=== PATIENT | male | born 1990 | race Caucasian/White ===

== ENCOUNTER 2025-10-18 14:06 | Outpatient (REF) | payer MEDICAID, SELFPAY ==
--- NOTE | ~2025-10-18 | US_ITS ---
CLINICAL HISTORY: LUMP TO RIGHT MEDIAL UPPER THIGH Ultrasound soft tissues right leg Comparison: None provided Findings: 1.1 cm subcutaneous nodule with predominant fatty echogenicity. Question lymph node with fatty hilum versus benign lipoma. 0.7 cm heterogeneous subcutaneous fluid collection. 0.3 cm similar heterogeneous subcutaneous fluid collection. These may represent resolving hematomas or seromas. Recommend clinical follow-up to ensure resolution. Impression: Small heterogeneous fluid collections as above Question resolving hematomas, recommend clinical follow-up Fatty replaced lymph node versus lipoma as above This document has been electronically signed by: Jason Redmond MD on 10/18/2025 19:28:53
== END 2025-10-18 14:07 | disposition home or self-care (01) ==
LOC: HO.US 14:06
PROVIDERS: Visit Provider Internal Medicine
DX: R22.41 Localized swelling, mass and lump, right lower limb (principal)
CPT/HCPCS: 76882

== ENCOUNTER → 2025-10-18 15:19 | Outpatient (BNV) | payer MEDICAID, SELFPAY | PROVIDERS: Visit Provider Radiology Diagnostic Radiology | DX: R22.41 Localized swelling, mass and lump, right lower limb (principal) | CPT/HCPCS: 76882 ==

== ENCOUNTER 2025-11-22 18:12 | Emergency (ER) | payer MEDICAID, SELFPAY ==
--- NOTE | 2025-11-22 | ECG_ITS ---
Test Reason : SYNCOPE Blood Pressure : */* mmHG Vent. Rate : 89 BPM Atrial Rate : 89 BPM P-R Int : 138 ms QRS Dur : 88 ms QT Int : 344 ms P-R-T Axes : 65 35 31 degrees QTcB Int : 418 ms Normal sinus rhythm Normal ECG When compared with ECG of 23-Jun-2007 22:01, No significant changes seen Referred By: Generic ED Physician Electronically Signed By: ODILIA WILKERSON MD
--- NOTE | ~2025-11-22 | XR_ITS ---
CLINICAL HISTORY: cough 1 view chest x-ray. Comparison: None Findings: No consolidation or effusion. Cardiac and mediastinal contours appear unremarkable. Bones unremarkable. Impression: 1. No acute pulmonary disease. This document has been electronically signed by: Bruno Pichardo MD on 11/22/2025 19:38:58
--- NOTE | ~2025-11-22 | XR_ITS ---
CLINICAL HISTORY: fall 3 views lumbar spine Comparison: None Findings: There is transitional anatomy with partial lumbarization of the S1. No fractures or dislocations. Normal vertebral body alignment. No significant arthritic change. Intervertebral disc heights are maintained. Sacroiliac joints unremarkable. Impression: 1. No evidence of fracture or traumatic malalignment. This document has been electronically signed by: Bruno Pichardo MD on 11/22/2025 19:38:34
[2025-11-22 18:16] VITALS: BP 105/67; BP 121/71; PULSE 85; PULSE 92; RESP 16; TEMP 37.1; O2SAT 100; O2SAT 98; BMI 27.2
[2025-11-22 18:52] LABS: MANUAL DIFF FLAG NO
[2025-11-22 18:53] LABS: Hematocrit 45.1 % (42.0-52.0); Hemoglobin 15.3 g/dl (14.0-18.0); Imm Gran Abs Auto 0.02 X10*3/uL (0.00-0.03); Imm Gran Pct Auto 0.2 % (0.0-0.4); Lymphocytes Absolute Auto 0.6 X10*3/uL (1.2-4.9); Mean Corpuscular HGB Conc 33.9 g/dl (31.0-36.0); Mean Corpuscular Hemoglobin 28.7 pg (27.0-33.0); Mean Corpuscular Volume 84.6 fL (80.0-98.0); NRBC Abs Auto 0.000 X10*3/uL (0.0-0.012); NRBC Pct Auto 0.0 /100WBC (0.0-0.2); Platelet Count 151 X10*3/uL (160-400); Red Blood Count 5.33 X10*6/uL (4.60-5.80); White Blood Count 8.5 X10*3/uL (4.8-10.8)
[2025-11-22 19:09] LABS: Alanine Aminotransferase 36 U/L (0-40); Albumin Level 4.6 g/dL (3.5-5.0); Alkaline Phosphatase 64 U/L (39-117); Anion Gap 13 (12-20); Aspartate Amino Transferase 26 U/L (5-37); Blood Urea Nitrogen 9 mg/dL (9-16); Calcium 9.0 mg/dL (8.4-10.2); Carbon Dioxide 23 mmol/L (22-29); Chloride 106 mmol/L (96-108); Creatinine Clr Calc Pharmacy 86.1; Estimated Glomerular Filt Rate > 60; Lipase 29 U/L (8-78); Magnesium 2.3 mg/dL (1.6-2.6); Potassium 4.2 mmol/L (3.3-5.1); Sodium 138 mmol/L (135-145); Total Protein 7.5 g/dL (6.5-8.0)
[2025-11-22 19:19] LABS: Troponin-I High Sensitivity < 2.7 ng/L (<3.5-35.0)
--- OUTSIDE RECORDS SUMMARY | 2025-11-22 19:19 | XMS_ITS | Clinical Summary ---
Author Organization [facility] Address [address] [place] [address] [address] [place] [address] Care Team Providers Care Sagger Preparer Name Role Phone Unavailable Primary Care Provider Unavailabl e Allergies Active Allergy Reactions Criticality Noted Date Comments Levalbuterol Hcl 05/22/2018 Pineapple 06/22/2018 No reaction documented in transfer records Germanium Hives 09/24/2023 Shellfish Allergy Anaphylaxis High 09/24/2023 Medications EPINEPHrine (Epipen) 0.3 MG/0.3ML injection syringe INJECT 1 PEN IN THE MUSCLE ONE TIME DIRECTED FOR ANGIOEDEMA. 3 Active triamcinolone (Kenalog) 0.5 % cream APPLY TOPICALLY TO ABDOMINAL RASH TWICE DAILY 3 Active traMADol (Ultram) 50 MG tablet TAKE 1 TABLET BY MOUTH 1 TO 2 TIMES PER DAY NEEDED FOR SEVERE PAIN 3 Active ibuprofen 600 MG tablet Take 1 tablet (600 mg) by mouth every 6 (six) hours if needed for mild pain for up to 20 doses. 20 tablet 3 Active chlorhexidine (Peridex) 0.12 % solutionIndicat ions:Periodonta l disease Swish 15 mL morning and night. Spit, do not swallow. Do not eat or drink anything for 30 minutes following use. Do not use more than 2 consecutive weeks. 473 mL 3 Active Active Problems Problem Noted Date Diagnosed Date Incipient enamel caries 02/05/2024 Tooth fracture with loss of restorative material 12/29/2023 Periodontal disease 09/24/2023 Dental calculus 09/24/2023 Tooth impaction 09/24/2023 Social History Tobacco Use Types Packs/Day Years Used Date Smoking Tobacco: Never Smokeless Tobacco: Never Tobacco Cessation:Counseling Given: Not Answered Sex and Gender Information Value Date Recorded Sex Assigned at Male 09/30/2022 10:34 AM EDT Legal Sex Male 10:34 AM EDT Gender Identity Choose not to disclose 10:34 AM EDT Sexual Orientation Choose not to disclose 2021 10:34 AM EDT Last Filed Vital Signs Vital Sign Reading Time Taken Comments Blood Pressure 132/80 06/21/2025 1:08 PM EDT Pulse 72 11/28/2023 1:53 PM EST Temperature - - Respiratory Rate - - Oxygen Saturation - - Inhaled Oxygen Concentration - - Weight - - Height - - Body Mass Index - - Plan of Treatment Upcoming Encounters Date Type Department Care Team (Late st Contact Info) Description 01/03/2026 12:45 PM EST Office Visit [facility] [address] [place] [address] [place], [address] [place] [address] Health Maintenance Due Date Last Done Comments Depression Screening 1990 HIV Screening 1990 Lipid Panel 1990 SDOH Screening 1990 Disability Screening 1990 DTaP/Tdap/Td Vaccines (6 - Tdap) 2001 01/09/1998, 11/27/1995, 09/30/1992, Additional history exists Alcohol/Substance Use Screening 2002 Family Planning (PISQ) 2005 HPV Vaccines (1 - 3-dose series) 2005 Hepatitis C Screening 2008 Pneumococcal Vaccine: Pediatrics (0 to 5 Years) and At-Risk Patients (6 to 49) Years (1 of 2 - PCV) 2009 Dental Oral Exam 03/26/2024 09/24/2023, , 11/02/2018 Dental Prophylaxis 03/26/2024 09/24/2023, 0 07/18/2021, 11/15/2019, Additional history exists Dental X-Ray: Bitewings 09/25/2024 09/24/20 23, 07/18/2021, 11/15/2019, Additional history exists COVID-19 Vaccine ( season) 2025 04/07/2021, 03/27/2021, 03/17/2021 Influenza Vaccine (#1) 2025 , 08/25/2007, 09/30/2001, Additional history exists Tobacco Screening 06/21/2026 06/21/2025 Dental X-Ray: Full Mouth 06/22/2028 025, 09/24/2023, 11/02/2018 Zoster Vaccines (1 of 2) 2040 RSV Patients and Patients Aged 60 years or older (1 - 1-dose 75+ series) 2065 HIB Vaccines Completed 09/30/1992, 01/02, 08/30/1991 IPV Vaccines Completed 11/27/1995, 09/02, 08/30/1991, Additional history exists Hepatitis B Vaccines Completed 02/04/1996, 09/05/1995, 08/06/1995 Hepatitis A Vaccines Aged Out No long er eligible based on patient's age to complete this topic Meningococcal B Vaccine Aged Out No l onger eligible based on patient's age to complete this topic Meningococcal Vaccine Aged Out No mayte lester eligible based on patient's age to complete this topic RSV under 20 months Aged Out No longe r eligible based on patient's age to complete this topic Rotavirus Vaccines Aged Out No longer eligible based on patient's age to complete this topic Procedures Procedure Name Priority Date/Time Associated Diagnosis Comments PANORAMIC RADIOGRAPHIC IMAGE Routine 06/21/2025 1:00 PM EDT PROPHYLAXIS - ADULT Routine 09/24/2023 1 0:00 AM EDT Periodontal disease Dental calculus INTRAORAL - COMPLETE SERIES OF RADIOGRAPHIC IMAGES Routine 09/24/2023 10:00 AM EDT Periodontal disease Dental calculus PERIODIC ORAL EVALUATION - ESTABLISHED PATIENT Routine 09/24/2023 10:00 AM EDT from Last 3 Months or Most Recently Relevant to Health Maintenance Insurance [facility] MEDICAID STAND ADULT
--- OUTSIDE RECORDS SUMMARY | 2025-11-22 19:19 | XMS_ITS | Data Portability ---
Author Organization [place] [facility], Allergy Address [address] [address] Care Team Providers Care Auto Transmission Technician Name Role Phone MARGOTJILLTU MANUEL Primary Care Provider Assessment Encounter Date Assessment Date Assessment LastModified by Organization Details LastModified Time 07/16/2024 07/16/2024 Patient with history of nasal pressure, sinus congestion and blocked ears. Cerumen impactions were removed bilaterally. 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 He would like to reconsider doing immunotherapy so we will have him retested check CBC and IgE E level. I will start Singulair in addition to his fluticasone nasal spray. [email or web address] Not available 07/16/2024 11:25:00 Plan of Treatment Reminders Order Date Submit Date Provider Last Modified By Organization Details Last Modified Time Details Appointments None recorded. Lab CBC w/ auto diff 2023 024 GIOVANI [facility] (Centralized Electronic Ordering - All Locations), Patient Can Go To The Location Of Their Choice, [id number] 4 10:07:51 ige, total, serum 2023 024 GIOVANI [facility] (Centralized Electronic Ordering - All Locations), Patient Can Go To The Location Of Their Choice, [id number] 10:07:52 Referral None recorded. Procedures allergy testing, skin prick (PROC) 2023 024 [email or web address] Not available 08:17:47 intradermal allergy skin testing (PROC) 2023 024 [email or web address] Not available 4 08:17:47 pulmonary function test procedure (PROC) 2023 024 [email or web address] Not available 4 08:17:48 pulse oximetry (PROC) 2023 024 [email or web address] Not available 4 08:17:48 Surgeries None recorded. Imaging None recorded. Medication Orders Singulair 10 mg tablet 2023 GIOVANI Not available 11:24:01 Patient TargetsNo targets recorded. Patient InstructionsNo instructions recorded. Reason for Referral None Reported. Results Created Date Observation Date Name Description Value Unit Range Abnormal Flag Note LastModifiedBy Organization Detail LastModifiedTime 07/16/2007/16/2024 CBC WITH DIFFE RENTI AL/PL ATELE T WBC 6.2 x10e3 /uL 3.4-10 .8 normal Not Available [facility] ([facility]) [address] [place], [address], 07/19/2024 10:07:51 07/16/20 24 07/16/2024 CBC WITH DIFFE RENTI AL/PL ATELE T RBC 5.61 x10e6 /uL 4.14-5 .80 normal Not Available [facility] ([facility]) [address] [place], [address], 07/19/2024 10:07:51 07/16/20 24 07/16/2024 CBC WITH DIFFE RENTI AL/PL ATELE T hemoglobin 16.3 g/dL 13.0-1 7.7 normal Not Available [facility] ([facility]) [address] [place], [address], 07/19/2024 10:07:51 07/16/20 24 07/16/2024 CBC WITH DIFFE RENTI AL/PL ATELE T hematocrit 51.1 % 37.5-5 1.0 above high normal Not Available [facility] ([facility]) [address] [facility], [place], [address], 07/19/2024 10:07:51 07/16/20 24 07/16/2024 CBC WITH DIFFE RENTI AL/PL ATELE T MCV 91 fL 79-97 normal Not Available [facility] ([facility]) [address] [facility], [place], [address], 07/19/2024 10:07:51 07/16/20 24 07/16/2024 CBC WITH DIFFE RENTI AL/PL ATELE T MCH 29.1 pg 26.6-3 3.0 normal Not Available [facility] ([facility]) [address] [facility], [place], [address], 07/19/2024 10:07:51 07/16/20 24 07/16/2024 CBC WITH DIFFE RENTI AL/PL ATELE T MCHC 31.9 g/dL 31.5-3 5.7 normal Not Available [facility] ([facility]) [address] [facility], [place], [address], 07/19/2024 10:07:51 07/16/20 24 07/16/2024 CBC WITH DIFFE RENTI AL/PL ATELE T RDW 13.5 % 11.6-1 5.4 Not Available [facility] ([facility]) [address] [facility], [place], [address], 07/19/2024 10:07:51 07/16/20 24 07/16/2024 CBC WITH DIFFE RENTI AL/PL ATELE T platelets 193 x10e3 /uL 150-45 0 normal Not Available [facility] ([facility]) [address] [place], [address], 07/19/2024 10:07:51 07/16/20 24 07/16/2024 CBC WITH DIFFE RENTI AL/PL ATELE T neutrophils 52 % not estab. normal Not Available [facility] ([facility]) [address] [facility], [place], [address], 07/19/2024 10:07:51 07/16/20 24 07/16/2024 CBC WITH DIFFE RENTI AL/PL ATELE T lymphs 33 % not estab. normal Not Available [facility] ([facility]) [address] [facility], [place], [address], 07/19/2024 10:07:51 07/16/20 24 07/16/2024 CBC WITH DIFFE RENTI AL/PL ATELE T monocytes 9 % not estab. normal Not Available [facility] ([facility]) [address] [facility], [place], [address], 07/19/2024 10:07:51 07/16/20 24 07/16/2024 CBC WITH DIFFE RENTI AL/PL ATELE T eos 4 % not estab. normal Not Available [facility] ([facility]) [address] [facility], [place], [address], 07/19/2024 10:07:51 07/16/20 24 07/16/2024 CBC WITH DIFFE RENTI AL/PL ATELE T basos 1 % not estab. normal Not Available [facility] ([facility]) [address] [facility], [place], [address], 07/19/2024 10:07:51 07/16/20 24 07/16/2024 CBC WITH DIFFE RENTI AL/PL ATELE T immature cells CARD PLACER Not Available [facility] ([facility]) [address] [facility], [place], [address], 07/19/2024 10:07:51 07/16/20 24 07/16/2024 CBC WITH DIFFE RENTI AL/PL ATELE T neutrophils (absolute) 3.3 x10e3 /uL 1.4-7. 0 normal Not Available [facility] ([facility]) [address] [facility], [place], [address], 07/19/2024 10:07:51 07/16/20 24 07/16/2024 CBC WITH DIFFE RENTI AL/PL ATELE T lymphs (absolute) 2.0 x10e3 /uL 0.7-3. 1 normal Not Available [facility] ([facility]) [address] [place], [address], 07/19/2024 10:07:51 07/16/20 24 07/16/2024 CBC WITH DIFFE RENTI AL/PL ATELE T monocytes(ab solute) 0.6 x10e3 /uL 0.1-0. 9 normal Not Available [facility] ([facility]) [address] [place], [address], 07/19/2024 10:07:51 07/16/20 24 07/16/2024 CBC WITH DIFFE RENTI AL/PL ATELE T eos (absolute) 0.2 x10e3 /uL 0.0-0. 4 normal Not Available [facility] ([facility]) [address] [place], [address], 07/19/2024 10:07:51 07/16/20 24 07/16/2024 CBC WITH DIFFE RENTI AL/PL ATELE T baso (absolute) 0.1 x10e3 /uL 0.0-0. 2 normal Not Available [facility] ([facility]) [address] [place], [address], 07/19/2024 10:07:51 07/16/20 24 07/16/2024 CBC WITH DIFFE RENTI AL/PL ATELE T immature granulocytes 1 % not estab. Not Available [facility] ([facility]) [address] [place], [address], 07/19/2024 10:07:51 07/16/20 24 07/16/2024 CBC WITH DIFFE RENTI AL/PL ATELE T immature grans (abs) 0.0 x10e3 /uL 0.0-0. 1 Not Available [facility] ([facility]) [address] [place], [address], 07/19/2024 10:07:51 07/16/20 24 07/16/2024 CBC WITH DIFFE RENTI AL/PL ATELE T NRBC CARD PLACER Not Available [facility] ([facility]) [address] [facility], [place], [address], 07/19/2024 10:07:51 07/16/20 24 07/16/2024 CBC WITH DIFFE RENTI AL/PL ATELE T hematology comments: CARD PLACER Not Available [facility] ([facility]) [address] [facility], [place], [address], 07/19/2024 10:07:51 07/16/20 24 07/19/2024 IMMUN OGLOB ULIN E, TOTAL immunoglobul in E, total 88 IU/mL 6-495 Not Available [facility] ([facility]) [address] [facility], [place], [address], 07/19/2024 10:07:52 Result Notes None recorded. Problems Name Problem SNOMED Code Status Onset Date Resolution Date Notes Provider Name and Address Organization Details Recorded Time Deviated nasal septum 975762062 Completed 201707/02/2024 Deviated nasal septum; Note: Date Diagnose d: 8 4:23 PM (J34.2) Not Available [facility] 4 02:21:26 Allergic rhinitis 67665985 Active 2017 Other allergic rhinitis ; Note: Date Diagnose d: 01/01/2018 1:56 PM (J30.89) Not Available [facility] 4 02:22:02 Hypertro phy of nasal turbinat es 86115201 Completed 201707/02/2024 Hypertro phy of nasal turbinat es; Note: Date Diagnose d: 8 2:42 PM (J34.3) Not Available [facility] 4 02:21:44 Follow-u p visit Active 2017 Medical surveill ance followin g complete d treatmen t; Note: Date Diagnose d: 11/09/20 18 2:26 PM (Z09) Not Available [facility] 4 02:21:30 Polyp of nasal cavity 420111327 Active 2023 CHRIS QUEZADA MD [address] [facility], [place], [address] , [facility] 4 11:22:02 Impacted cerumen of bilatera l ears 86730243352 15281 Active 2023 CHRIS QUEZADA MD [address] [facility], [facility] [place], [address] , [facility] [place] 4 11:22:42 Problem Notes None recorded. Procedures Surgical History Date Name Laterality Status Provider Name and Address Organization Details Recorded Time 4 JMSNasal/Sinus Endoscopy completed CHRIS RANGEL MD 100 [facility],[address], [address], [facility] 07/16/2024 11:21:13 4 Cerumen removal with microscope bilateral completed CHRIS RANGEL MD 100 [facility],[address], [address], [facility] 07/16/2024 11:21:27 nasal polypectomy completed CHRIS RANGEL MD 100 [facility],[address], [address], [facility] 07/16/2024 11:20:00 Repair of nasal septum completed CHRIS RANGEL MD [address] [facility],[address], [address], [facility] 07/16/2024 11:20:23 Imaging Results None recorded. Procedure Notes None recorded. Medical Equipment None Reported. Allergies Allergen ID Allergen Name Allergen Category Reaction Reaction Severity Criticality Documentation Date Start Date Code Code System Note Provider Name and Address Organization Details Recorded Time 27980 shrimp allergeni c extract food other Not available Not available 04/13/2024 27189 2 RxNorm React ion: unkno wn, unspe cifie d;; Not Available [facility] 4 00:54:42 32166 Iodinated contrast media (substanc e) medicatio n hives Not available Not available 04/13/2024 87788 2003 SNOMED React ion: hives ;; Not Available [facility] 4 00:54:45 40389 Xopenex medicatio n other Not available Not available 04/13/2024 67804 2 RxNorm React ion: unkno wn, unspe cifie d;; Not Available [facility] 4 00:54:46 Medications Name Sig Start Date Stop Date Status Note LastModified by Organization Details LastModified Time cyclobenz aprine 10 mg tablet 07/16 completed Not Available Not Available Not Available albuterol sulfate 0.63 mg/3 mL solution for nebulizat ion TAKE 3 ML (INHALAT ION) EVERY 4 TO 6 HOURS (SHORTNE SS OF BREATH OR WHEEZING ) FOR 7 DAYS 07/16 completed Not Available Not Available Not Available albuterol sulfate 2.5 mg/3 mL (0.083 %) solution for nebulizat ion 07/16 completed Medicati on ID: [id number] D uration Value: 25 Brand Name: albutero l sulfate Send Method: E-Prescr ibed Sub s Allowed: subs OK Speci al Instruct ion: INHALE 1 VIAL BY NEB TWICE A DAY NEEDED M edicatio nGeneric Name: albutero l sulfate Not Available Not Available Not Available triamcino lone acetonide 0.5 % topical cream APPLY TOPICALL Y TO ABDOMINA L RASH TWICE DAILY 07/16 completed Not Available Not Available Not Available azithromy douglas 250 mg tablet TAKE 2 TABLETS BY MOUTH TODAY, THEN TAKE 1 TABLET DAILY FOR 4 DAYS DIRECTED 07/16 completed Not Available Not Available Not Available metoprolo l succinate ER 50 mg tablet,ex tended release 24 hr TAKE 1 TABLET BY MOUTH EVERY DAY 07/16 completed Not Available Not Available Not Available ketotifen 0.025 % (0.035 %) eye drops 07/16 completed Not Available Not Available Not Available prednison e 20 mg tablet TAKE 3 TABLETS BY MOUTH DAILY FOR 5 DAYS 07/16 completed Not Available Not Available Not Available Debrox 6.5 % ear drops APPLY 4 DROPS EACH EAR TWICE DAILY FOR 5 DAYS THEN FLUSH WITH WARM WATER 07/16 completed Not Available Not Available Not Available tramadol 50 mg tablet TAKE 1 TABLET BY MOUTH 1 TO 2 TIMES PER DAY NEEDED FOR SEVERE PAIN 07/16 completed Not Available Not Available Not Available meloxicam 7.5 mg tablet TAKE 1 TABLET BY MOUTH TWICE DAILY AFTER MEALS 07/16 completed Not Available Not Available Not Available meclizine 25 mg tablet TAKE 1 TABLET BY MOUTH TWICE DAILY NEEDED FOR DIZZINES S FOR 7 DAYS 07/16 completed Not Available Not Available Not Available lidocaine 5 % topical patch 07/16 completed Not Available Not Available Not Available lisinopri l 20 mg-hydroc hlorothia zide 25 mg tablet TAKE 1 TABLET BY MOUTH EVERY DAY 07/16 completed Not Available Not Available Not Available monteluka st 10 mg tablet TAKE 1 TABLET BY MOUTH EVERY DAY active Not Available Not Available No t Available ibuprofen 600 mg tablet 07/16 completed Not Available Not Available Not Available methylpre dnisolone 4 mg tablets in a dose pack 07/16 completed Not Available Not Available Not Available celecoxib 100 mg capsule TAKE 1 CAPSULE BY MOUTH TWICE DAILY WITH FOOD 07/16 completed Not Available Not Available Not Available ketoconaz ole 2 % topical cream 07/16 completed Medicati on ID: [id number] D uration Value: 30 Brand Name: ketocona zole Sen d Method: E-Prescr ibed Sub s Allowed: richa haddad Instruct ion: APPLY TOPICALL Y TWICE A DAY Medi cationGe nericNam e: ketocona zole Not Available Not Available Not Available fluticaso ne propionat e 50 mcg/actua tion nasal spray,nina pension 07/16 completed Medicati on ID: [id number] D uration Value: 30 Brand Name: fluticas one Send Method: E-Prescr ibed Sub s Allowed: subs MICHELLE haddad Instruct ion: PUMP 2 SPRAYS INTO EACH NOSTRIL EVERY DAY Medi cationGe nericNam e: fluticas one Not Available Not Available Not Available Ventolin HFA 90 mcg/actua tion aerosol inhaler TAKE 2 PUFFS (INHALAT ION) EVERY 6 HOURS (SHORTNE SS OF BREATH OR WHEEZING ) FOR 10 DAYS 07/16 completed Not Available Not Available Not Available Flovent HFA 110 mcg/actua tion aerosol inhaler 07/16 completed Medicati on ID: [id number] D uration Value: 30 Brand Name: Flovent HFA Send Method: E-Prescr ibed Sub s Allowed: subs OK Speci al Instruct ion: INHALE 2 PUFFS INTO LUNGS BY MOUTH TWICE A DAY Medi cationGe nericNam e: Flovent HFA Not Available Not Available Not Available Flovent HFA 220 mcg/actua tion aerosol inhaler 1 puff using inhaler 07/16 completed Medicati on ID: [id number] D uration Value: 60 Prescri bed By Name: Eric Amin MD Brand Name: Flovent HFA Send Method: E-Prescr ibed Sub s Allowed: subs OK Medic ationGen ericName : Flovent HFA Not Available Not Available Not Available chlorhexi dine gluconate 0.12 % mouthwash 07/16 completed Not Available Not Available Not Available Symbicort 160 mcg-4.5 mcg/actua tion HFA aerosol inhaler 07/16 completed Medicati on ID: [id number] D uration Value: 30 Brand Name: Symbicor t Send Method: E-Prescr ibed Sub s Allowed: subs OK Speci al Instruct ion: TAKE 2 PUFFS BY MOUTH EVERY 12 HOURS *RINSE MOUTH WITH WATER AFTER USE Medi cationGe nericNam e: Symbicor t Not Available Not Available Not Available BinaxNOW COVID-19 Ag Self Test kit TEST DIRECTED TODAY 07/16 completed Not Available Not Available Not Available Vitals Date Recorded Systolic And Diastolic Provider Name and Address Organization Details Last Updated DateTime 07/16/2024 119/72 mm[Hg] CHRIS RANGEL MD [address] [place] [address],[address], [address], [place] [facility] 07/16/2024 11:25:20 Date Recorded Body height Body mass index (BMI) Body weight Provider Name and Address Organization Details Last Updated DateTime 07/16/2024 167.64 cm 33.9 kg/m2 36220.4 g Rosario Candelario [place] - [facility] 07/16/2024 11:05:24 Social History None recorded. Functional Status Question Answer Note LastModified by Organizat ion Details LastModified Time What is your level of alcohol consumption? Occasional [email or web address] Information not available 07/16/2024 Mental Status None recorded. Family History Nothing Reported. Medical History Condition Response Hypertension Y Asthma Y Immunizations Vaccine Type Date Status Note Provider Nam e and Address Organization Details Recorded Time influenza nasal, unspecified formulation 3 completed Rosario marin [place] - [facility] 07/16/2024 11:06:18 Past Encounters Encounter ID Performer Location Encounter Start Date Encounter Closed Date Diagnosis/Indication Diagnosis SNOMED-CT Code Diagnosis ICD10 Code Diagnosis IMO Codes Diagnosis Note [id number] CHRIS QUEZADA MD [facility] [address] [address] 07/16/2024 10:42:51 07/16/2024 13:57:31 Allergic rhinitis 21647937 J30.9 Polyp of nasal cavity 73 1190739 J33.0 Impacted c erumen of bilateral ears 1018604473 454541 H61.23 Suggested 3 drops distilled vinegar in each ear twice weekly to prevent the buildup of cerumen Health Concerns Section Related Observation LastModified by Organization Detai ls LastModified Time None Recorded Concern Status LastModified by Organization Details LastModified Time None Recorded Advance Directives Directive None Recorded Payers Insurance Date Sequence Insurance Name Policy Number Policy Bunch Covered Member ID Bunch Member ID Guarantor Name 07/16/2024 1 [place] [facility] Eduardo Vasques [id number] Eduardo Vasques Notes Date Note Type Note Provider Name and Address Organization Details Recorded Time 07/16/2024 text/html ROS as noted in the HPI Patient reports blocked left ear following attempted irrigation. He has a history of allergic rhinitis, nasal polyps removed in [place] and septoplasty and turbinate reduction done with Dr. Amin around 2018. He tried immunotherapy for a couple of months but could not keep the appointments. He notes nasal congestion and sinus pressure despite using fluticasone nasal spray. He has a history of asthma but no recent need for albuterol no chest pain bowel or bladder problems CHRIS RANGEL MD [address] [place] [address], [place], [address], [facility] - [facility] 07/16/2024 11:26:02
--- OUTSIDE RECORDS SUMMARY | 2025-11-22 19:19 | XMS_ITS | Encounter Summary ---
Author Organization [facility] Address [address] [place] [address] [address] [place] [address] Care Team Providers Care Permaculture Contractor Name Role Phone Unavailable Primary Care Provider Unavailabl e Encounter Details Date Type Department Care Team (Late st Contact Info) Description 10/10/2023 Abstract [facility] [address] [place] [address] Adithya Rubio DDS [address] [place] [address] Social History Tobacco Use Types Packs/Day Years Used Date Smoking Tobacco: Never Smokeless Tobacco: Never Sex and Gender Information Value Date Recorded Sex Assigned at Male 09/30/2022 10:34 AM EDT Legal Sex Male 10:34 AM EDT Gender Identity Choose not to disclose 10:34 AM EDT Sexual Orientation Choose not to disclose 2021 10:34 AM EDT documented as of this encounter Plan of Treatment Upcoming Encounters Date Type Department Care Team (Late st Contact Info) Description 01/03/2026 12:45 PM EST Office Visit [facility] [address] [place] [address] [place] [address] [place] [address] documented as of this encounter Visit Diagnoses Not on filedocumented in this encounter
--- OUTSIDE RECORDS SUMMARY | 2025-11-22 19:19 | XMS_ITS | Encounter Summary ---
Author Organization [facility] Address [address] [facility] [address] [place] [address] Phone Care Team Providers Care Outbound Supervisor Name Role Phone Hallie Palumbo MD Primary Care Provider Encounter Details Date Type Department Care Team (Late st Contact Info) Description 08/30/2016 [place] [facility] [address] [place] [address] Dahlia Davenport MD, MPH [address] [place] [phone] [email or web address] Social History Tobacco Use Types Packs/Day Years Used Date Smoking Tobacco: Never Sex and Gender Information Value Date Recorded Sex Assigned at Male 04/20/2025 10:42 AM EDT Legal Sex Male 6:09 PM EST Gender Identity Male 04/20/2025 10:42 AM EDT Sexual Orientation Straight 04/20/2025 10 :42 AM EDT documented as of this encounter Plan of Treatment Upcoming Encounters Date Type Department Care Team (Late st Contact Info) Description 12/28/2025 11:50 AM EST Office Visit [facility] [address] [address] Kisha Paris MD [address] [place] [address] [email or web address] documented as of this encounter Visit Diagnoses Not on filedocumented in this encounter Care Teams Outbound Supervisor Relationship Specialty Start Date End Date Hallie Palumbo MD [address] [place] [address] Dr Fuentes, RANGEL [address] PCP - General 02/02/16 documented as of this encounter Additional Source Comments The information contained in this document represents components of the legal health record. It is not the complete legal health record.[facility]
--- OUTSIDE RECORDS SUMMARY | 2025-11-22 19:19 | XMS_ITS | Encounter Summary ---
Author Organization [employer] [facility] Address [address] [place] [address] [address] [address] Care Team Providers Care Slat Basket Maker Helper Name Role Phone Unavailable Primary Care Provider Unavailabl e Encounter Details Date Type Department Care Team (Latest Contact Info) Description 02/08/2019 Abstract [facility] CONVERSION[facility] Dental, Provider, DDS Social History Tobacco Use Types Packs/Day Years Used Date Smoking Tobacco: Never Assessed Sex and Gender Information Value Date Recorded [...] Description 01/03/2026 12:45 PM EST Office Visit [facility] [address] [place] [address] Gilmer Portilloaris [address] [place] [address] documented as of this encounter Visit Diagnoses Not on filedocumented in this encounter
--- OUTSIDE RECORDS SUMMARY | 2025-11-22 19:19 | XMS_ITS | Encounter Summary ---
Author Organization [employer] [facility] Address [address] 7 [place] [address] Care Team Providers Care Chart Clerk Name Role Phone Unavailable Primary Care Provider Unavailabl e Reason for Visit * Reason Onset Date Comments Prior Authorization 10/07/2023 Encounter Details Date Type Department Care Team (Late st Contact Info) Description 10/07/2023 Telephone [facility] [address], [place] [phone] Adithya Rubio DDS [address], [place] [phone] Prior Authorization Social History Tobacco Use Types Packs/Day Years Used Date Smoking Tobacco: Never Smokeless Tobacco: Never Sex and Gender Information Value Date Recorded Sex Assigned at Male 09/30/2022 10:34 AM EDT Legal Sex Male 10:34 AM EDT Gender Identity Choose not to disclose 10:34 AM EDT Sexual Orientation Choose not to disclose 2021 10:34 AM EDT documented as of this encounter Miscellaneous Notes * Telephone Encounter - Ramona Khan - 10/07/2023 9:38 AM EST Patient received denial for Perio Scaling. He called in asking what the next step would be. I did inform patient that we had not receive/scanned in any denial or approval as of yet. Patient received before office has. He contacted [employer] and was told that the denial was due to the wrong code. That the code has to be changed so that it can be approved. He stated to please let him know that this is something that can be taken care of so that he can determine if he has to appeal or not documented in this encounter Plan of Treatment Upcoming Encounters Date Type Department Care Team (Late st Contact Info) Description 01/03/2026 12:45 PM EST Office Visit [facility] [address] [place] [address] Gilmer Portilloaris [address] [place] [address] documented as of this encounter Visit Diagnoses Not on filedocumented in this encounter
--- OUTSIDE RECORDS SUMMARY | 2025-11-22 19:19 | XMS_ITS | Encounter Summary ---
Author Organization [facility] [facility] Address [address] [place] [address] [address] [place] [address] Care Team Providers Care Textile Supervisor Name Role Phone Unavailable Primary Care Provider Unavailabl e Encounter Details Date Type Department Care Team (Late st Contact Info) Description 10/17/2023 Abstract [facility] [address] [place] [address] Adithya Rubio DDS [address] [place] [address] Social History Tobacco Use Types Packs/Day Years [...] Description 01/03/2026 12:45 PM EST Office Visit [facility] [address] [place] [address] [employer] [address] [place] [address] documented as of this encounter Visit Diagnoses Not on filedocumented in this encounter
--- OUTSIDE RECORDS SUMMARY | 2025-11-22 19:19 | XMS_ITS | Encounter Summary ---
Author Organization [employer] [facility] Address [address] [place] [address] [address], [place] [address] Care Team Providers Care Supervisor Cigar Processing Name Role Phone Unavailable Primary Care Provider Unavailabl e Encounter Details Date Type Department Care Team (Latest Contact Info) Description 07/18/2021 Abstract [facility] CONVERSIONS Dental, Provider, DDS Social History Tobacco [...] Description 01/03/2026 12:45 PM EST Office Visit [facility] [address] [place] [address] Gilmer Portilloaris [address] [place] [address] documented as of this encounter Visit Diagnoses Not on filedocumented in this encounter
--- OUTSIDE RECORDS SUMMARY | 2025-11-22 19:20 | XMS_ITS | Clinical Summary ---
Author Organization [facility] Address [address] [facility] [address] [place] [address] Phone Care Team Providers Care Senior Product Development Scientist Name Role Phone Hallie Palumbo MD Primary Care Provider Allergies Active Allergy Reactions Criticality Noted Date Comments Capparis Spinosa (Poonam) 06/22/2018 Pumpkin. No reaction documented in transfer records Gadolinium-Containing Contrast Media Hives 05/22/2018 Germanium Hives 09/24/2023 Iodinated Contrast Media Hives High 05/22/2018 SHORTNESS OF BREATH Levalbuterol Hcl Hives High 05/22/2018 Other Hives High 06/22/2018 PUMPKIN.SHORT OF BREATH Phs Other Free Text-See Phs Viewer 04/15/2007 Xaponex Pineapple Hives High 06/22/2018 No reaction documented in transfer records SHORT OF BREATH Shellfish Containing Products Anaphylaxis High 09/24/2023 Shrimp Hives High 06/22/2018 No reaction documented in transfer records SHORT OF BREATH Medications fluticasone-salm eterol (ADVAIR DISKUS) 250-50 mcg/dose DISKUS Dose: 1 PUFF; Form: Not available; Route: INH; Frequency: BID; Directions: Not available; Details: Not available; Date: 04/29/2007 04/29/20 07 Active ALBUTEROL SULFATE (ID-ALBUTEROL HFA) 90 mcg/inh inhaler Dose: 2 PUFF; Form: Not available; Route: INH; Frequency: Q6H PRN; Directions: Not available; Details: Not available; Date: 04/29/2007 04/29/20 07 Active MINERAL OIL/PETROLATUM,W TAE (REFRESH P.M. OPHT) Dose: Not available; Form: Not available; Route: BOTH EYES; Frequency: Not available; Directions: As directed; Details: Not available; Date: 02/22/2015 02/23/20 15 Active ibuprofen (ADVIL,MOTRIN) 600 MG tablet Take 600 mg by mouth every 6 (six) hours as needed. 11/20/20 23 Active EPINEPHrine 0.15 mg/0.15 mL auto-injector Inject 0.15 mg into the muscle. 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 Asthma 05/06/2007 Overview (01/21/2015): Asthma; Bilateral Seasonal allergic rhinitis 04/15/2007 Overview (01/21/2015): Seasonal allergies Sinusitis 04/15/2007 Overview (01/21/2015): Sinusitis Family History Medical History Relation Comments Hypertension Maternal Grandfather hypertensio n Stroke Maternal Grandfather cerebrovasc ular accident Type 2 Diabetes Maternal Grandfather diabetes me llitus type 2 Hypertension Maternal Grandmother hypertensio n Stroke Maternal Grandmother cerebrovasc ular accident Type 2 Diabetes Maternal Grandmother diabetes me llitus type 2 Asthma Unspecified asthma Relation Status Comments Maternal Grandfather Maternal Grandmother Unspecified Social History Tobacco Use Types Packs/Day Years Used Date Smoking Tobacco: Never Alcohol Use Standard Drinks/Week Comments Yes 0 (1 standard drink = 0.6 oz pur e alcohol) Education Answer Date Recorded Are you interested in more education? Not on basil e 04/06/2023 Are you concerned about learning? Not on file 04/06/2023 No 04/06/2023 No 04/06/2023 Food Answer Date Recorded Within the past 6 months we worried whether our food would run out before we got money to buy more. Never True 04/20/2025 Within the past 6 months the food we bought just didn't last and we didn't have enough money to get more. Never True Residential Stability Answer Date Recor ded What is your housing situation today? I have karel peters 04/20/2025 How many times have you move d in the past 12 months? Zero (I did not move) 04/20/2025 Paying for Meds Answer Date Recorded Do you have trouble paying for medicines? No 04/20/2025 Paying Utility Bills Answer Date Record ed Do you have trouble paying your heating or elect ricity bill? No 04/20/2025 Transportation Answer Date Recorded Has the lack of transportati on kept you from medical appointments or from getting medications? No 04/20/2025 Digital Access Answer Date Recorded No 04/20/2025 Yes 04/20/2025 Do you have reliable internet access at home? Ye s 04/20/2025 Do you have a device (e.g., phone, tablet, computer) with a working camera? Yes 04/20/2025 Intimate Partner Violence Answer Date R ecorded Are you denied basic needs s uch as food, clothing, or medical care? No 04/20/2025 In the past 12 months have y ou been in a relationship with a person who hurts, threatens, or tries to control you? No 04/20/2025 Are you denied basic needs s uch as food, clothing, or medical care? No 04/20/2025 In the past 12 months have y ou been in a relationship with a person who hurts, threatens, or tries to control you? No 04/20/2025 Sex and Gender Information Value Date Recorded Sex Assigned at Male 04/20/2025 10:42 AM EDT Legal Sex Male 6:09 PM EST Gender Identity Male 04/20/2025 10:42 AM EDT Sexual Orientation Straight 04/20/2025 10 :42 AM EDT Last Filed Vital Signs Vital Sign Reading Time Taken Comments Blood Pressure 122/91 04/20/2025 10:32 AM EDT Pulse 60 04/20/2025 10:32 AM EDT Temperature 36.4 C (97.5 F) 04/20/2025 10:32 AM EDT Respiratory Rate 18 04/20/2025 10:32 AM EDT Oxygen Saturation 98% 04/20/2025 10:32 AM EDT Inhaled Oxygen Concentration - - Weight 93 kg (205 lb) 04/20/2025 10:32 AM EDT Height 167.6 cm (5' 6 ) 04/20/2025 10:32 AM EDT Body Mass Index 33.09 04/20/2025 10:32 AM EDT Plan of Treatment Upcoming Encounters Date Type Department Care Team (Late st Contact Info) Description 12/28/2025 11:50 AM EST Office Visit [facility] [address] [address] Kisha Paris MD [address] [place] [phone] [email or web address] Health Maintenance Due Date Last Done Comments Adult Td,Tdap Booster 1990 DEPRESSION SCREENING 2002 HEPATITIS C SCREENING 2008 HIV ONE-TIME SCREENING (18-6 5 YEARS) 2008 PNEUMOCOCCAL VACCINES (0-49 years) (1 of 2 - PCV) 2009 INFLUENZA VACCINE (#1) 2025 COVID-19 VACCINE (4 - 2024-2 6 season) 2025 04/07/2021, 03/27/2021, 03/17/2021 SMOKING STATUS SCREENING (On ce After 26 Yrs) Completed 06/16/2016 HEPATITIS A VACCINES Aged Out No long er eligible based on patient's age to complete this topic HIB VACCINES Aged Out No longer eligi ble based on patient's age to complete this topic MENINGOCOCCAL VACCINES (ACWY) Aged Out No longer eligible based on patient's age to complete this topic MENINGOCOCCAL VACCINES (B) Aged Out N o longer eligible based on patient's age to complete this topic Medical Devices Not on file Insurance [place] [address] [place] [address] [place] [address] [facility] PCC PCC Care Teams Senior Product Development Scientist Relationship Specialty Start Date End Date Hallie Palumbo MD [address] [place] [address] [place] [phone] PCP - General 02/02/16 Additional Source Comments The information contained in this document represents components of the legal health record. It is not the complete legal health record.[facility]
--- OUTSIDE RECORDS SUMMARY | 2025-11-22 19:20 | XMS_ITS | Encounter Summary ---
Author Organization [facility] Address [email or web address] [facility] [address] [place] [address] Phone Care Team Providers Care Brokerage Clerk Name Role Phone Hallie Palumbo MD Primary Care Provider Encounter Details Date Type Department Care Team (Late st Contact Info) Description 04/20/2025 Ophth Exam [facility] Emergency Department [address] [place] [address] Cheryl Malik MD [address] [place] [address] [email or web address] Social History Tobacco Use Types Packs/Day Years [...] your housing situation today? I have karel sing 04/20/2025 How many times have you move [...] Description 12/28/2025 11:50 AM EST Office Visit [facility] [address] [place] [address] Kisha Paris MD [address] [place] [phone] [email or web address] documented as of this encounter Visit Diagnoses Not on filedocumented in this encounter Care Teams Brokerage Clerk Relationship Specialty Start Date End Date Hallie Palumbo MD [address] [place] [address] Dr [place], [place] [phone] PCP - General 02/02/16 documented as of this encounter Additional Source Comments The information contained in this document represents components of the legal health record. It is not the complete legal health record.[facility]
[2025-11-22] MEDS: Lactated Ringers 1,000 ML 999 ML IV (19:31)
[2025-11-22 19:32] LABS: Resp Syncy Virus RNA Qual PCR NEGATIVE (Negative); SARS COV2 PCR INHOUSE NEGATIVE (Negative)
--- NOTE | 2025-11-22 19:43 | ED.SYNCOPE ---
HPI - Syncope General Chief Complaint: Syncope Stated Complaint: syncope Time Seen by Provider: 11/22/25 18:55 Source: patient, EMS and old records reviewed Mode of arrival: EMS Limitations: no limitations History of Present Illness ED Provider: AUSTIN BURROUGHS narrative: 34-year-old male with past medical history of hypertension and asthma he notes he has been having an upper respiratory infection with wheezing, chest congestion, cough, body aches for 3 days. He states he went to the [employer] today got his hair cut when he stood up he felt dizzy and weak and passed out for 2 minutes. There was no seizure activity reported. He denies any head trauma. On arrival he is GCS 15. He states overall he just has been feeling well. He is able to eat and drink. Has not had any history of this in the past. He is back to baseline MD complaint: felt faint Onset (ago): minute(s) (LEGAL ADMINISTRATIVE SECRETARY) -: minutes(s) Prodromal symptoms: vision changes and lightheaded Witnessed: No Context: standing up Injuries sustained associated with event: back Current symptoms: back to baseline History: other Treatments prior to arrival: none Related Data Previous Rx's ?Medication ?Instructions ?Recorded prednisone 20 mg tablet 40 mg (2 x 20 mg) PO DAILY 5 days 11/22/25 #10 tabs Allergies Allergy/AdvReac Type Severity Reaction Status Date / Time levalbuterol (From XOPENEX) Allergy Severe HIVES Verified 11/22/25 18:18 pineapple (Pineapple) Allergy Intermediate HIVES Verified 11/22/25 18:18 SWELLING pumpkin Allergy Intermediate HIVES, Verified 11/22/25 18:18 SWELLING Review of Systems Review of Systems: Yes all other systems are reviewed and are negative [facility] Past Medical History Attestation statement: The following information was validated with the patient. Source: old records reviewed Medical History HTN (hypertension) Asthma Social History Social History (Updated 11/22/25 @ 19:47 by Viktoriya Núñez DO) Patient Tobacco Use Status: Never used Tobacco Physical Exam Vital Signs: Vital Signs: Last Vital Signs Temp 98.8 F 11/22/25 18:16 Pulse 92 11/22/25 18:16 Resp 16 11/22/25 18:16 BP 121/71 11/22/25 18:16 Pulse Ox 98 11/22/25 18:16 O2 Del Method Room Air 11/22/25 18:16 BMI result Body Mass Index 27.2 Appearance: Alert. Oriented X3. No acute distress. Eyes: Pupils equal, round and reactive to light. ENT: Pharynx normal. Atraumatic Neck: Normal inspection. Neck supple. CVS: Normal heart rate and rhythm. Pulses normal. Respiratory: No respiratory distress. Breath sounds normal. Abdomen: Soft and nontender. Skin: Skin warm and dry. Normal skin color. Normal skin turgor. Extremities: No lower extremity edema. No calf ttp Neuro: Oriented X 3. No motor deficit. No sensory deficit. CN2-12 intact Medications Administered Generic Name Dose Route Start Last Admin Trade Name Freq PRN Reason Stop Dose Admin Lactated Ringer's 1,000 mls @ 999 mls/hr 11/22/25 19:02 11/22/25 19:31 Lr IV 11/22/25 20:02 999 mls/hr .Q1H1M ONE Administration Medical Decision Making Medical Decision Making [facility] Narrative: 34-year-old male with past medical history of asthma and hypertension who has not been feeling well he has had a flu-like illness for 3 days he has not been tested he has been using his albuterol inhaler. He went to the [employer] today and when he stood up after the hair cut he passed out. There is no signs of head trauma. There was no seizure activity. He states overall he is just not felt well. He appears to have a viral-like illness. He has no risk factors other than hypertension for ACS and his symptoms preceding the syncope are more viral I do not suspect this is CAD or PE. He will get labs, flu panel, IV fluids, x-ray of lower back. Differential Diagnosis Differential Diagnoses: The differential diagnosis associated with the presentation includes Vasovagal syncope, influenza Admission/Observation Consideration of admission/observation: Escalation of care including admission/observation considered He is not toxic his lungs are clear his vital signs are stable I suspect that this is vasovagal after standing due to recent influenza diagnosis he has no signs of EYAD he can be managed at home he is not in the window for Tamiflu Lab Data [facility] Lab Attestation statement: I reviewed the patient's lab results. 11/22/25 18:48 11/22/25 18:48 Labs: Lab Results 11/22/25 Range/Units 18:48 WBC 8.5 (4.8-10.8) X10*3/uL RBC 5.33 (4.60-5.80) X10*6/uL Hgb 15.3 (14.0-18.0) g/dl Hct 45.1 (42.0-52.0) % MCV 84.6 (80.0-98.0) fL MCH 28.7 (27.0-33.0) pg MCHC 33.9 (31.0-36.0) g/dl RDW 13.2 (11.0-16.0) % Plt Count 151 L (160-400) X10*3/uL MPV 11.6 (9.4-12.4) fL Immature Gran % (Auto) 0.2 (0.0-0.4) % Neut % (Auto) 82.2 H (45-73) % Lymph % (Auto) 7.3 L (20-40) % [place] % (Auto) 9.3 (2-11) % Eos % (Auto) 0.5 (0-4) % Baso % (Auto) 0.5 (0-2) % Lymph # (Auto) 0.6 L (1.2-4.9) X10*3/uL [place] # (Auto) 0.8 (0.1-1.2) X10*3/uL Eos # (Auto) 0.0 (0.0-0.4) X10*3/uL Baso # (Auto) 0.0 (0.0-0.2) X10*3/uL Abs Immat Gran (auto) 0.02 (0.00-0.03) X10*3/uL Absolute Neuts (auto) 7.0 (2.0-8.3) x10*3/uL Absolute Nucleated RBC 0.000 (0.0-0.012) X10*3/uL Nucleated RBC % (auto) 0.0 (0.0-0.2) /100WBC Sodium 138 (135-145) mmol/L Potassium 4.2 (3.3-5.1) mmol/L Chloride 106 (96-108) mmol/L Carbon Dioxide 23 (22-29) mmol/L Anion Gap 13 (12-20) BUN 9 (9-16) mg/dL Creatinine 1.13 (0.5-1.4) mg/dL Estim Creat Clear Calc 86.1 Estimated GFR > 60 Random Glucose 100 (60-115) mg/dL Calcium 9.0 (8.4-10.2) mg/dL Magnesium 2.3 (1.6-2.6) mg/dL Total Bilirubin 0.5 (0.0-1.0) mg/dL AST 26 (5-37) U/L ALT 36 (0-40) U/L Alkaline Phosphatase 64 (39-117) U/L Troponin I High Sens < 2.7 (<3.5-35.0) ng/L Total Protein 7.5 (6.5-8.0) g/dL Albumin 4.6 (3.5-5.0) g/dL Lipase 29 (8-78) U/L Influenza Type A (PCR) POSITIVE A (Negative) Influenza Type B (PCR) NEGATIVE (Negative) RSV RNA Qual (PCR) NEGATIVE (Negative) SARS-CoV-2 RNA (RT-PCR) NEGATIVE (Negative) Independent Interpretation I performed an independent interpretation of an: EKG and Plain X-Ray (No trauma) Interpretation: Rate: 89 Rhythm: Normal sinus rhythm Hope: Normal Normal P waves. Normal NUPUR. Normal QRS complex. ST T wave : Normal no ST-elevation, inverted T-wave in lead 3 qTC: 418 prior studies: No acute ischemia The study has been interpreted contemporaneously by me. . Radiology Impression Discussion of test interpretation with radiology: I have reviewed the radiologist's reading. External Record Review External record reviewed: Outpatient record Prescription Management I considered prescription management with: Other Discharge Plan Discharge Clinical Impression: Influenza A, Vasovagal syncope Patient Disposition: Home, Self-Care Instructions: Syncope (ED), Influenza (ED) Additional Instructions: You are contagious from the start of your symptoms for 7 days You need to wear a mask and protect others You need to rest and stay hydrated alternate Tylenol and Motrin as needed for fevers and body aches. Make sure you drink plenty of fluids Your x-rays were reassuring, your EKG was reassuring, your labs are reassuring, Please take prednisone with food Continue your albuterol treatments Prescriptions: New prednisone 20 mg tablet 40 mg PO DAILY 5 Days Qty: 10 0RF Stand Alone Forms: Work/School Release Print Language: Amharic
[2025-11-22 20:07] VITALS: BP 121/71; PULSE 92; RESP 16; TEMP 37.1; O2SAT 98
== END 2025-11-22 20:17 | disposition home or self-care (01) ==
PROVIDERS: Emergency Provider Emergency Medicine; PCP Internal Medicine
DX: J10.1 Influenza due to other identified influenza virus with other respiratory manifestations (principal); R55 Syncope and collapse; Z03.818 Encounter for observation for suspected exposure to other biological agents ruled out; I10 Essential (primary) hypertension; J45.909 Unspecified asthma, uncomplicated; Z79.51 Long term (current) use of inhaled steroids
CPT/HCPCS: 36415; 71045; 72100; 80053; 83690; 83735; 84484; 85025; 87637; 93005; 96360; 99284; J7120

== ENCOUNTER → 2025-11-22 18:22 | Outpatient (BNV) | payer MEDICAID, SELFPAY | PROVIDERS: Emergency Provider Emergency Medicine; PCP Internal Medicine; Visit Provider Internal Medicine Cardiovascular Disease | DX: R55 Syncope and collapse (principal) | CPT/HCPCS: 93010 ==

== ENCOUNTER → 2025-11-22 19:02 | Outpatient (BNV) | payer MEDICAID, SELFPAY | PROVIDERS: Emergency Provider Emergency Medicine; PCP Internal Medicine; Visit Provider Radiology Diagnostic Radiology | DX: Z04.3 Encounter for examination and observation following other accident (principal); R05.9 Cough, unspecified | CPT/HCPCS: 71045; 72100 ==